=== PATIENT | female | born 1980 ===

== ENCOUNTER 2017-05-17 07:53 | Emergency (ER) | payer OTHER, SELFPAY ==
[2017-05-17 08:04] VITALS: BMI 21.7
[2017-05-17 08:08] VITALS: BP 95/57; PULSE 64; RESP 18; TEMP 98; O2SAT 99
--- NOTE | 2017-05-17 08:23 | ED PDOC ---
HPI: Skin/Bite Injury Time Seen by Provider: 05/17/17 08:00 Chief Complaint (Nursing): Abnormal Skin Integrity Chief Complaint (Provider): Rash to bilateral hands History Per: Patient History/Exam Limitations: no limitations Onset/Duration Of Symptoms: Days (x 4) Current Symptoms Are (Timing): Still Present Additional Complaint(s): Emely is a 36 y/o female with no past medical history who presents to the ED complaining of itchy rash on hands bilaterally since . Denies fever, and any other sites of rash. PMD: Unknown Past Medical History Reviewed: Historical Data, Nursing Documentation, Vital Signs Vital Signs: Last Vital Signs Temp 98.0 F 05/17/17 08:04 Pulse 64 05/17/17 08:04 Resp 18 05/17/17 08:04 BP 95/57 L 05/17/17 08:04 Pulse Ox 99 05/17/17 08:26 - Medical History PMH: No Chronic Diseases - Surgical History Surgical History: No Surg Hx - Family History Family History: States: Unknown Family Hx - Social History Current smoker - smoking cessation education provided: No Alcohol: None Drugs: Denies - Home Medications Home Medications: Ambulatory Orders Medication Instructions Recorded Cetirizine HCl [Zyrtec] 10 mg PO DAILY #10 capsule 05/17/17 predniSONE [predniSONE Tab] 10 mg PO TID #15 tab 05/17/17 - Allergies Allergies/Adverse Reactions: Allergies Allergy/AdvReac Type Severity Reaction Status Date / Time No Known Allergies Allergy Verified 05/17/17 08:04 Review of Systems ROS Statement: Except As Marked, All Systems Reviewed And Found Negative Constitutional: Negative for: Fever Skin: Positive for: Rash (bilateral hands) Physical Exam - Reviewed Nursing Documentation Reviewed: Yes Vital Signs Reviewed: Yes - Physical Exam Appears: Positive for: Well, Non-toxic, No Acute Distress Head Exam: Positive for: ATRAUMATIC, NORMAL INSPECTION, NORMOCEPHALIC Skin: Positive for: Warm, Dry, Rash (Papular rash on the dorsal surface of both hands involving thumb to wrist, no palmar involvement. No other rash noted.) Eye Exam: Positive for: EOMI, Normal appearance, PERRL Neck: Positive for: Normal, Painless ROM, Supple Extremity: Positive for: Normal ROM. Negative for: Deformity Neurologic/Psych: Positive for: Alert, Oriented - ECG O2 Sat by Pulse Oximetry: 99 (RA) Pulse Ox Interpretation: Normal Medical Decision Making Medical Decision Making: Time: 08:19 Clinical Impression: Dermatitis Upon provider evaluation patient is medically stable, and requires no further treatment in the ED at this time. Patient will be discharged with Rx for Zyrtec and Prednisone. Counseling was provided and all questions were answered regarding diagnosis and need for follow up with PMD. There is agreement to discharge plan. Return if symptoms persist or worsen. Scribe Attestation: Documented by Cynthia Chavarria, acting as a scribe for Bry Ayala MD Provider Scribe Attestation: All medical record entries made by the Scribe were at my direction and personally dictated by me. I have reviewed the chart and agree that the record accurately reflects my personal performance of the history, physical exam, medical decision making, and the department course for this patient. I have also personally directed, reviewed, and agree with the discharge instructions and disposition. Disposition - Clinical Impression Clinical Impression: Dermatitis - Patient ED Disposition Is Patient to be Admitted: No - Disposition Referrals: Jose Edaurdo Arevalo MD [Staff Provider] - Disposition: Routine/Home Disposition Time: 08:30 Condition: GOOD Prescriptions: Cetirizine HCl [Zyrtec] 10 mg PO DAILY #10 capsule predniSONE [predniSONE Tab] 10 mg PO TID #15 tab Instructions: Dermatitis (ED) Forms: [employer] ([place]ian) Print Language: CITIZEN OF [place]
== END 2017-05-17 09:08 | disposition home or self-care (01) ==
LOC: H.ER 07:53
DX: L30.9 Dermatitis, unspecified (principal)

== ENCOUNTER 2018-02-27 09:38 | Emergency (ER) | payer OTHER ==
[2018-02-27 10:38] VITALS: TEMP 97.9; O2SAT 99
[2018-02-27 10:39] VITALS: BMI 22.7
--- NOTE | 2018-02-27 11:00 | ED PDOC ---
Lower Extremity Pain/Injury Time Seen by Provider: 02/27/18 10:52 Chief Complaint (Nursing): Allergic Reaction Chief Complaint (Provider): Allergic Reaction History Per: Patient History/Exam Limitations: no limitations Onset/Duration Of Symptoms: Hrs (four) Current Symptoms Are (Timing): Still Present Severity: Mild Additional Complaint(s): Pt presents to the ED with a known allergy to "GAIN" laundry detergent; pt has been using GAIN laundry detergent at work and complains of a mild pruritic and erythematous rash to her bilateral hands. Pt indicates that she has been self treating the pruritis with OTC hydrocortizone without effect. Pt deneis fever, nausea, vomiting diarrhea or other ailments Past Medical History Reviewed: Historical Data, Nursing Documentation, Vital Signs Vital Signs: Last Vital Signs Temp 97.9 F 02/27/18 10:38 Pulse 62 02/27/18 10:38 Resp 16 02/27/18 10:38 BP 112/69 02/27/18 10:38 Pulse Ox 99 02/27/18 10:38 - Family History Family History: States: Unknown Family Hx - Home Medications Home Medications: Ambulatory Orders Medication Instructions Recorded Cetirizine HCl [Zyrtec] 10 mg PO DAILY #10 capsule 05/17/17 predniSONE [predniSONE Tab] 10 mg PO TID #15 tab 05/17/17 Hydrocort/Min Oil/Petrolat,Wht 1 applic TP QID #25 g 02/27/18 [Hydrocortisone 1% Absorbase] Prednisone [Deltasone] 20 mg PO BID #10 tablet 02/27/18 - Allergies Allergies/Adverse Reactions: Allergies Allergy/AdvReac Type Severity Reaction Status Date / Time No Known Allergies Allergy Verified 02/27/18 10:07 Review of Systems ROS Statement: Except As Marked, All Systems Reviewed And Found Negative Skin: Positive for: Rash, Other (pruritis) Physical Exam - Reviewed Nursing Documentation Reviewed: Yes Vital Signs Reviewed: Yes - Physical Exam Skin: Positive for: Normal Color, Rash (see HPI) Cardiovascular/Chest: Positive for: Regular Rate, Rhythm Respiratory: Positive for: Normal Breath Sounds, Other (allergic reaction is contained to derma only, no respiratory symptoms). Negative for: Decreased Breath Sounds, Accessory Muscle Use, Crackles, Rales, Rhonchi, Stridor, Wheezing Pulses-Carotid (L): 2+ Pulses-Carotid (R): 2+ Pulses-Radial (L): 2+ Pulses-Radial (R): 2+ - ECG O2 Sat by Pulse Oximetry: 99 Medical Decision Making Medical Decision Makinmg decadron IM 25mg benadryl PO Disposition - Clinical Impression Clinical Impression: Allergic reaction, Acute allergic reaction, Dermatitis - Patient ED Disposition Is Patient to be Admitted: No Doctor Will See Patient In The: Office Counseled Patient/Family Regarding: Studies Performed, Diagnosis, Need For Followup, Rx Given - Disposition Referrals: [facility] [Outside] Disposition: Routine/Home Disposition Time: 11:04 Condition: GOOD Prescriptions: Hydrocort/Min Oil/Petrolat,Wht [Hydrocortisone 1% Absorbase] 1 applic TP QID # 25 g Prednisone [Deltasone] 20 mg PO BID #10 tablet Instructions: Eczema (Atopic Dermatitis), Eczema (Atopic Dermatitis) (DC) Forms: [facility] ([place])
[2018-02-27 12:15] VITALS: BP 110/70; PULSE 66; RESP 18
== END 2018-02-27 11:48 | disposition home or self-care (01) ==
LOC: H.ER 09:38
DX: L30.9 Dermatitis, unspecified (principal); L23.9 Allergic contact dermatitis, unspecified cause